=== PATIENT | male | born 1995 | race Two or more races ===

== ENCOUNTER 2019-02-10 18:52 | Emergency (ER) | payer BC, MEDICAID, OTHER ==
[~2019-02-10] VITALS: Ht 170.2 cm; Wt 55.4 kg
[2019-02-10 18:59] VITALS: BP 135/82
[2019-02-10] MEDS ORDERED: IBUPROFEN 200 MG TABLET ONE (19:13)
[2019-02-10] MEDS ORDERED: IBUPROFEN 600 MG TABLET PO ONE (19:30)
== END 2019-02-10 19:54 | disposition home or self-care (01) ==
LOC: ED 19:48
DX: S93.491A Sprain of other ligament of right ankle, initial encounter (principal); X50.1XXA Overexertion from prolonged static or awkward postures, initial encounter; Y93.89 Activity, other specified; Y92.89 Other specified places as the place of occurrence of the external cause; Y99.8 Other external cause status
CPT/HCPCS: 99283

== ENCOUNTER 2019-07-06 05:19 | Emergency (ER) | payer BC, OTHER ==
[~2019-07-06] VITALS: Ht 172.7 cm; Wt 53.7 kg
[2019-07-06 11:53] VITALS: BP 126/71
== END 2019-07-06 11:56 | disposition home or self-care (01) ==
LOC: ED 10:31
DX: S01.01XA Laceration without foreign body of scalp, initial encounter (principal); Q27.30 Arteriovenous malformation, site unspecified; Y08.89XA Assault by other specified means, initial encounter; Y93.89 Activity, other specified; Y92.89 Other specified places as the place of occurrence of the external cause; Y99.8 Other external cause status
CPT/HCPCS: 13121; 70450; 70544; 70551; 72125; 96374; 99285; J2405

== ENCOUNTER 2019-07-16 11:07 | Emergency (ER) | payer BC, OTHER ==
[~2019-07-16] VITALS: Ht 172.7 cm; Wt 55.9 kg
[2019-07-16 11:14] VITALS: BP 95/51
== END 2019-07-16 11:50 | disposition home or self-care (01) ==
LOC: ED 11:35
DX: S01.01XD Laceration without foreign body of scalp, subsequent encounter (principal); W22.8XXD Striking against or struck by other objects, subsequent encounter
CPT/HCPCS: 99281